=== PATIENT | female | born 1990 | race Caucasian/White ===

== ENCOUNTER 2021-04-13 17:29 | Emergency (ER) | payer OTHER ==
[~2021-04-13] VITALS: Ht 160 cm; Wt 113.4 kg
[~2021-04-13 17:29] MED LIST: ACYCLOVIR 800800 MG PO; BACTRIM DS TAB1 EACH PO; DEPO-ESTRAD5 MG/1 ML; ERYTHROMYCIN E3.5 G1 OP; NORCO 5-325 TA1 EACH PO; PRENATAL; VISTARIL 25 MG25 M1 PO; ZYRTEC
[2021-04-13] MEDS ORDERED: ASA81BEC PO (17:41)
[2021-04-13] MEDS ORDERED: ZYRTEC10 M5 PO (17:42)
[2021-04-13 18:57] VITALS: BP 145/88
== END 2021-04-13 18:57 | disposition home or self-care (01) ==
LOC: M.ERS 17:29
DX: Z48.01 Encounter for change or removal of surgical wound dressing (principal); R22.42 Localized swelling, mass and lump, left lower limb; F17.210 Nicotine dependence, cigarettes, uncomplicated; Z91.013 Allergy to seafood; Z79.899 Other long term (current) drug therapy; Z79.82 Long term (current) use of aspirin; Z98.890 Other specified postprocedural states